=== PATIENT | male | born 1975 | race Caucasian/White ===

== ENCOUNTER → 2021-08-17 | Outpatient (CLI) | payer OTHER ==
--- NOTE | 2021-08-17 16:20 | XR ---
EXAMINATION TYPE: XR lumbosacral spine min 4V DATE OF EXAM: 08/17/2021 COMPARISON: NONE INDICATION: Pain TECHNIQUE: Standard 5 views of the lumbar spine. FINDINGS: Mild retrolisthesis of L5 over S1 as well as of L3 over L4, likely degenerative. No definite vertebra l body collapse or acute displaced fracture. Degenerative changes of the lumbar spine with multilevel opposing endplate osteophytosis. Degenerated L5-S1 disc. Bilateral L4-5 facet osteoarthropathy. Grossly unremarkable sacroiliac joints. No gross paraspinal le jomar. IMPRESSION: Degenerative changes of the lumbar spine as described above. Further MRI assessment can be considered if clinically required.
== END | disposition home or self-care (01) ==
LOC: RADXRMAIN 14:47
PROVIDERS: ATTEND Family Medicine
DX: M47.816 Spondylosis without myelopathy or radiculopathy, lumbar region (principal)
CPT/HCPCS: 72110

== ENCOUNTER → 2021-10-01 | Outpatient (CLI) | payer MEDICAID ==
--- NOTE | 2021-10-01 08:53 | MR ---
EXAMINATION TYPE: MR lumbar spine wo con DATE OF EXAM: 10/01/2021 COMPARISON: None HISTORY: Lower back pain, LLE radiculopathy x 1 year. TECHNIQUE: Multiplanar, multisequence images of the lumbar spine were acquired without IV contrast. L1-L2: Normal disc appearance without desiccation. No herniation, protrusion or disc bulging. No ca nal stenosis is present. Foramina are patent bilaterally. L2-L3: Normal disc appearance without desiccation. Mild left paracentral disc bulge. No evidence for central stenosis or lateral recess stenosis. Mild left foraminal encroachment. No canal stenosis is p resent. Foramina are patent bilaterally. L3-L4: Mild decreased signal ossified compatible degenerative disc disease. Left paracentral disc bul ge resulting in left lateral recess stenosis and left foraminal encroachment. Small subligamentous pr otrusion difficult to exclude. No central stenosis appreciated. L4-L5: Mild to moderate disc desiccation. Posterior disc bulge mildly effaces the ventral thecal sac. There is bilateral lateral recess stenosis and mild on right. Left foraminal encroachment. Mild face t joint arthropathy. L5-S1: Moderate disc desiccation with a posterior disc bulge and annular tear. No evidence for landy herniation. No central stenosis or lateral recess stenosis. Facet joint arthropathy and mild bilatera l foraminal encroachment. Lumbar segments are intact. No paraspinal masses are identified. Conus medullaris has a normal appe arance. IMPRESSION: 1. Multilevel degenerative disc disease. 2. Lateral recess stenosis at several levels as outlined above as well as neural foraminal encroachme nt.
== END | disposition home or self-care (01) ==
LOC: RADMRIMAIN 08:00
PROVIDERS: ATTEND Nurse Practitioner Family
DX: M51.26 Other intervertebral disc displacement, lumbar region (principal); M48.061 Spinal stenosis, lumbar region without neurogenic claudication; M99.73 Connective tissue and disc stenosis of intervertebral foramina of lumbar region
CPT/HCPCS: 72148

== ENCOUNTER → 2022-03-31 | Outpatient (CLI) | payer MEDICAID ==
[2022-03-31 15:35] LABS: LDL Cholesterol,Calculated 177.2 mg/dL (0.0-131.0)
[2022-03-31 15:44] LABS: ALT 57 U/L (10-49); AST 54 U/L (14-35); African American GFR (CKD) 117.7 (60.0-200.0); Albumin 4.4 g/dL (3.8-4.9); Albumin/Globulin Ratio 1.77 (1.60-3.17); Alkaline Phosphatase 79 U/L (41-126); Blood Urea Nitrogen 15.4 mg/dL (9.0-27.0); Calcium 8.8 mg/dL (8.7-10.3); Carbon Dioxide 22.7 mmol/L (20.0-27.5); Chloride 101 mmol/L (96-109); Globulin 2.5 g/dL (1.6-3.3); Glucose 105 mg/dL (70-110); Non-African American GFR(CKD) 101.6 (60.0-200.0); Sodium 138 mmol/L (135-145); Total Protein 6.8 g/dL (6.2-8.2)
== END | disposition home or self-care (01) ==
LOC: LABWHC1 08:53
PROVIDERS: ATTEND Nurse Practitioner Family
DX: Z12.5 Encounter for screening for malignant neoplasm of prostate (principal); N52.2 Drug-induced erectile dysfunction; Z79.899 Other long term (current) drug therapy
CPT/HCPCS: 80061; 80053; 85027; 84270; 82040; 84403; 36415; G0103

== ENCOUNTER → 2022-04-26 | Outpatient (CLI) | payer MEDICAID ==
[2022-04-26 14:43] LABS: HCT 48.2 % (39.6-50.0); HGB 15.7 g/dL (13.0-17.0); MCH 29.6 pg (27.0-32.0); MCHC 32.6 g/dL (32.0-37.0); MCV 90.8 fL (80.0-97.0); Mean Platelet Volume 10.2 fL (9.5-12.2); NRBC Per 100 WBC 0 /100 WBCS (0.0-0.0); Platelet Count 200 X 10*3/uL (140-440); RBC 5.31 X 10*6/uL (4.40-5.60); RDW 12.1 % (11.5-14.5); WBC 8.28 X 10*3/uL (4.50-10.00)
== END | disposition home or self-care (01) ==
LOC: LABWHC1 10:18
PROVIDERS: ATTEND Nurse Practitioner Family
DX: Z12.5 Encounter for screening for malignant neoplasm of prostate (principal); N52.2 Drug-induced erectile dysfunction; Z79.899 Other long term (current) drug therapy
CPT/HCPCS: 36415; 82040; 84270; 84403; 85027

== ENCOUNTER → 2023-02-24 | Outpatient (CLI) | payer MEDICAID ==
[2023-02-24 15:36] LABS: HCT 45.2 % (39.6-50.0); HGB 15.3 g/dL (13.0-17.0); MCH 30.2 pg (27.0-32.0); MCHC 33.8 g/dL (32.0-37.0); MCV 89.3 FL (80.0-97.0); Mean Platelet Volume 10.7 FL (9.5-12.2); NRBC Per 100 WBC 0 X 10*3/uL (0.00-0.01); Platelet Count 190 X 10*3/uL (140-440); RBC 5.06 X 10*6/uL (4.40-5.60); RDW 12.2 % (11.5-14.5); WBC 7.31 X 10*3/uL (4.50-10.00)
[2023-02-24 15:51] LABS: ALT 61 U/L (10-49); AST 45 U/L (14-35); Albumin 4.6 g/dL (3.8-4.9); Albumin/Globulin Ratio 1.77 Ratio (1.60-3.17); Alkaline Phosphatase 78 U/L (41-126); BUN/Creat Ratio 20.12 Ratio (12.00-20.00); Blood Urea Nitrogen 16.1 mg/dL (9.0-27.0); Calcium 9.6 mg/dL (8.7-10.3); Carbon Dioxide 25.1 mmol/L (21.6-31.8); Chloride 102 mmol/L (96-109); Globulin 2.6 g/dL (1.6-3.3); Glucose 101 mg/dL (70-110); Potassium 4.8 mmol/L (3.5-5.5); Sodium 138 mmol/L (135-145); Total Bilirubin 0.4 mg/dL (0.3-1.2); Total Protein 7.2 g/dL (6.2-8.2)
== END | disposition home or self-care (01) ==
LOC: LABWHC1 08:51
PROVIDERS: ATTEND Internal Medicine
DX: Z51.81 Encounter for therapeutic drug level monitoring (principal); Z79.899 Other long term (current) drug therapy
CPT/HCPCS: 36415; 80053; 85027

== ENCOUNTER → 2023-10-04 | Outpatient (CLI) | payer MEDICAID | END | disposition home or self-care (01) | LOC: LABWHC1 07:59 | PROVIDERS: ATTEND Urology | DX: E29.1 Testicular hypofunction (principal) | CPT/HCPCS: 36415; 84402; 84403 ==